=== PATIENT | male | born 1980 | race American Indian/Alaskan Native ===

== ENCOUNTER 2018-11-09 15:16 | Emergency (ER) | payer SELFPAY ==
--- NOTE | 2018-11-09 15:46 | Emergency Department Report ---
Addendum entered and electronically signed by ARNALDO SANDOVAL NP 11/09/18 16:47: Blank Doc - Documentation Documentation: Patient is eating soap and is expressing visual and auditory hallucinations. Patient is not stable currently with my assessment. Patient appears to be mentally ill with imminently life endangering crisis to self. Patient appears to be so unable to care for his own physical health and safety as to create an imminently life-endangering crisis. Patient placed on 1013. Original Note: Blank Doc - Documentation Documentation: This is a 38-year-old male that presents with visual hallucinations. Denies any SI/HI. Stated is out of his medications for x1 year. This initial assessment diagnostic orders/clinical plan/treatment(s) is/are subject to change based on patient's health status, clinical progression and re- assessment by fellow clinical providers in the ED. Further treatment and workup at subsequent clinical providers discretion. Patient/guardians urged not to elope from ED s their condition may be serious if not clinically assessed and managed. Initial orders include: 1-labs 2- Charge nurse called for patient to be brought back chucky. 3- RN was notified patient to be in full observation until patient goes back to the ED.
[2018-11-09 16:43] LABS: Basophils # (Auto) 0.1 K/mm3 (0.0-0.1); Basophils % (Auto) 0.9 % (0.0-1.8); Eosinophils # (Auto) 0.1 K/mm3 (0.0-0.4); Eosinophils % (Auto) 2.2 % (0.0-4.3); Lymphocytes % (Auto) 29.4 % (13.4-35.0); Mean Corpuscular HGB Conc 36 % (32-34); Mean Corpuscular Volume 89 fl (84-94); Monocytes # (Auto) 0.4 K/mm3 (0.0-0.8); Monocytes % (Auto) 6.5 % (0.0-7.3); Platelet Count 238 K/mm3 (140-440); Red Blood Count 5.01 M/mm3 (3.65-5.03); Red Cell Distribution Width 13.5 % (13.2-15.2)
[2018-11-09 16:44] LABS: Hematocrit 44.3 % (35.5-45.6); Hemoglobin 15.8 gm/dl (11.8-15.2)
[2018-11-09 17:12] LABS: Alanine Aminotransferase 81 units/L (7-56); Albumin 4.7 g/dL (3.9-5); BUN/Creatinine Ratio 6; Blood Urea Nitrogen 7 mg/dL (9-20); Calcium 9.6 mg/dL (8.4-10.2); Hemolysis Index 8
--- NOTE | 2018-11-09 18:00 | Emergency Department Report ---
ED Psych HPI - General Chief Complaint: Psych Stated Complaint: MH/HALLUNCINATION Time Seen by Provider: 11/09/18 15:44 Source: patient Mode of arrival: Ambulatory Limitations: No Limitations - History of Present Illness Initial Comments: 38 year old male with a past medical history bipolar, schizophrenia, hypertension, and diabetes as per triage presents to the hospital exhibiting psychosis. Patient had visual hallucinations appear to 42 without a mass has 1 year. Initial mid-level evaluated noted patient eating soap and talking to himself. When questioned patient denies psychiatric history and states he has just here for a flu shot. He is cooperative at this time. No physical complaints reported. - Related Data Allergies Allergy/AdvReac Type Severity Reaction Status Date / Time Penicillins Allergy Unknown Verified 11/09/18 15:45 ED Review of Systems ROS: Stated complaint: MH/HALLUNCINATION Other details as noted in HPI Comment: All other systems reviewed and negative ED Past Medical Hx - Past Medical History Hx Hypertension: Yes (bipolar hallucinations, schizophrenia) Hx Diabetes: Yes - Surgical History Past Surgical History?: No - Social History Smoking Status: Never Smoker Substance Use Type: None ED Physical Exam - General Limitations: No Limitations - Other Other exam information: General: No limitations, patient is alert in no acute distress Head exam: Atraumatic, normocephalic Eyes exam: Normal appearance, pupils equal reactive to light, extraocular movements intact ENT: Moist mucous membrane, normal oropharynx Neck exam: Normal inspection, full range of motion, no meningismus nontender Respiratory exam: Clear to auscultation bilateral, no wheezes, rales, crackles Cardiovascular: Normal rate and rhythm, normal heart sounds Abdomen: Soft, nondistended, and nontender, with normal bowel sounds, no rebound, or guarding Extremity: Full range of motion normal inspection no deformity Back: Normal Inspection, full range of motion, no tenderness Neurologic: Alert, cranial nerves intact, no motor or sensory deficit Psychiatric: Alert, cooperative Skin: Warm, dry, intact ED Course Vital Signs 11/09/18 15:45 Temperature 98.3 F Pulse Rate 100 H Respiratory 18 Rate Blood Pressure 128/77 O2 Sat by Pulse 98 Oximetry ED Medical Decision Making - Lab Data Result diagrams: 11/09/18 16:14 11/09/18 16:14 Lab Results 11/09/18 11/09/18 11/09/18 Range/Units 16:14 16:14 16:14 WBC 6.7 (4.5-11.0) K/mm3 RBC 5.01 (3.65-5.03) M/mm3 Hgb 15.8 H (11.8-15.2) gm/dl Hct 44.3 (35.5-45.6) % MCV 89 (84-94) fl MCH 32 (28-32) pg MCHC 36 H (32-34) % RDW 13.5 (13.2-15.2) % Plt Count 238 (140-440) K/mm3 Lymph % (Auto) 29.4 (13.4-35.0) % [place] % (Auto) 6.5 (0.0-7.3) % Eos % (Auto) 2.2 (0.0-4.3) % Baso % (Auto) 0.9 (0.0-1.8) % Lymph # 2.0 (1.2-5.4) K/mm3 [place] # 0.4 (0.0-0.8) K/mm3 Eos # 0.1 (0.0-0.4) K/mm3 Baso # 0.1 (0.0-0.1) K/mm3 Seg Neutrophils % 61.0 (40.0-70.0) % Seg Neutrophils # 4.1 (1.8-7.7) K/mm3 Sodium 142 (137-145) mmol/L Potassium 3.5 L (3.6-5.0) mmol/L Chloride 101.2 (98-107) mmol/L Carbon Dioxide 25 (22-30) mmol/L Anion Gap 19 mmol/L BUN 7 L (9-20) mg/dL Creatinine 1.2 (0.8-1.5) mg/dL Estimated GFR > 60 ml/min BUN/Creatinine Ratio 6 % Glucose 94 (75-100) mg/dL Calcium 9.6 (8.4-10.2) mg/dL Total Bilirubin 1.10 (0.1-1.2) mg/dL AST 210 H (5-40) units/L ALT 81 H (7-56) units/L Alkaline Phosphatase 67 (35-129) units/L Total Protein 7.3 (6.3-8.2) g/dL Albumin 4.7 (3.9-5) g/dL Albumin/Globulin Ratio 1.8 % TSH 0.620 (0.270-4.200) mlU/mL Urine Color (Yellow) Urine Turbidity (Clear) Urine pH (5.0-7.0) Ur Specific [place] (1.003-1.030) Urine Protein (Negative) mg/dL Urine Glucose (UA) (Negative) mg/dL Urine Ketones (Negative) mg/dL Urine Blood (Negative) Urine Nitrite (Negative) Urine Bilirubin (Negative) Urine Urobilinogen (<2.0) mg/dL Ur Leukocyte Esterase (Negative) Urine WBC (Auto) (0.0-6.0) /HPF Urine RBC (Auto) (0.0-6.0) /HPF Uric Acid Crystals Hyaline Casts /LPF Urine Mucus /HPF Salicylates (2.8-20.0) mg/dL Urine Opiates Screen Urine Methadone Screen Acetaminophen (10.0-30.0) ug/mL Ur Barbiturates Screen Ur Phencyclidine Scrn Ur Amphetamines Screen U Benzodiazepines Scrn Urine Cocaine Screen U Marijuana (THC) Screen Drugs of Abuse Note Plasma/Serum Alcohol (0-0.07) % 11/09/18 11/09/18 11/09/18 Range/Units 16:14 16:14 16:14 WBC (4.5-11.0) K/mm3 RBC (3.65-5.03) M/mm3 Hgb (11.8-15.2) gm/dl Hct (35.5-45.6) % MCV (84-94) fl MCH (28-32) pg MCHC (32-34) % RDW (13.2-15.2) % Plt Count (140-440) K/mm3 Lymph % (Auto) (13.4-35.0) % [place] % (Auto) (0.0-7.3) % Eos % (Auto) (0.0-4.3) % Baso % (Auto) (0.0-1.8) % Lymph # (1.2-5.4) K/mm3 [place] # (0.0-0.8) K/mm3 Eos # (0.0-0.4) K/mm3 Baso # (0.0-0.1) K/mm3 Seg Neutrophils % (40.0-70.0) % Seg Neutrophils # (1.8-7.7) K/mm3 Sodium (137-145) mmol/L Potassium (3.6-5.0) mmol/L Chloride (98-107) mmol/L Carbon Dioxide (22-30) mmol/L Anion Gap mmol/L BUN (9-20) mg/dL Creatinine (0.8-1.5) mg/dL Estimated GFR ml/min BUN/Creatinine Ratio % Glucose (75-100) mg/dL Calcium (8.4-10.2) mg/dL Total Bilirubin (0.1-1.2) mg/dL AST (5-40) units/L ALT (7-56) units/L Alkaline Phosphatase (35-129) units/L Total Protein (6.3-8.2) g/dL Albumin (3.9-5) g/dL Albumin/Globulin Ratio % TSH (0.270-4.200) mlU/mL Urine Color (Yellow) Urine Turbidity (Clear) Urine pH (5.0-7.0) Ur Specific [place] (1.003-1.030) Urine Protein (Negative) mg/dL Urine Glucose (UA) (Negative) mg/dL Urine Ketones (Negative) mg/dL Urine Blood (Negative) Urine Nitrite (Negative) Urine Bilirubin (Negative) Urine Urobilinogen (<2.0) mg/dL Ur Leukocyte Esterase (Negative) Urine WBC (Auto) (0.0-6.0) /HPF Urine RBC (Auto) (0.0-6.0) /HPF Uric Acid Crystals Hyaline Casts /LPF Urine Mucus /HPF Salicylates < 0.3 L (2.8-20.0) mg/dL Urine Opiates Screen Urine Methadone Screen Acetaminophen < 5.0 L (10.0-30.0) ug/mL Ur Barbiturates Screen Ur Phencyclidine Scrn Ur Amphetamines Screen U Benzodiazepines Scrn Urine Cocaine Screen U Marijuana (THC) Screen Drugs of Abuse Note Plasma/Serum Alcohol < 0.01 (0-0.07) % 11/09/18 11/09/18 Range/Units 17:20 17:20 WBC (4.5-11.0) K/mm3 RBC (3.65-5.03) M/mm3 Hgb (11.8-15.2) gm/dl Hct (35.5-45.6) % MCV (84-94) fl MCH (28-32) pg MCHC (32-34) % RDW (13.2-15.2) % Plt Count (140-440) K/mm3 Lymph % (Auto) (13.4-35.0) % [place] % (Auto) (0.0-7.3) % Eos % (Auto) (0.0-4.3) % Baso % (Auto) (0.0-1.8) % Lymph # (1.2-5.4) K/mm3 [place] # (0.0-0.8) K/mm3 Eos # (0.0-0.4) K/mm3 Baso # (0.0-0.1) K/mm3 Seg Neutrophils % (40.0-70.0) % Seg Neutrophils # (1.8-7.7) K/mm3 Sodium (137-145) mmol/L Potassium (3.6-5.0) mmol/L Chloride (98-107) mmol/L Carbon Dioxide (22-30) mmol/L Anion Gap mmol/L BUN (9-20) mg/dL Creatinine (0.8-1.5) mg/dL Estimated GFR ml/min BUN/Creatinine Ratio % Glucose (75-100) mg/dL Calcium (8.4-10.2) mg/dL Total Bilirubin (0.1-1.2) mg/dL AST (5-40) units/L ALT (7-56) units/L Alkaline Phosphatase (35-129) units/L Total Protein (6.3-8.2) g/dL Albumin (3.9-5) g/dL Albumin/Globulin Ratio % TSH (0.270-4.200) mlU/mL Urine Color Yellow (Yellow) Urine Turbidity Clear (Clear) Urine pH 5.0 (5.0-7.0) Ur Specific [place] 1.009 (1.003-1.030) Urine Protein <15 mg/dl (Negative) mg/dL Urine Glucose (UA) Neg (Negative) mg/dL Urine Ketones Neg (Negative) mg/dL Urine Blood Neg (Negative) Urine Nitrite Neg (Negative) Urine Bilirubin Neg (Negative) Urine Urobilinogen 2.0 (<2.0) mg/dL Ur Leukocyte Esterase Neg (Negative) Urine WBC (Auto) 1.0 (0.0-6.0) /HPF Urine RBC (Auto) 1.0 (0.0-6.0) /HPF Uric Acid Crystals Few Hyaline Casts 7 /LPF Urine Mucus Few /HPF Salicylates (2.8-20.0) mg/dL Urine Opiates Screen Presumptive negative Urine Methadone Screen Presumptive negative Acetaminophen (10.0-30.0) ug/mL Ur Barbiturates Screen Presumptive negative Ur Phencyclidine Scrn Presumptive negative Ur Amphetamines Screen Presumptive negative U Benzodiazepines Scrn Presumptive negative Urine Cocaine Screen Presumptive negative U Marijuana (THC) Screen Presumptive negative Drugs of Abuse Note Disclamer Plasma/Serum Alcohol (0-0.07) % - Medical Decision Making Patient is medically clear for psychiatric admission and transfer. Mild elevation in LFTs noted AST greater than ALT suspicious for alcohol abuse. Mental health evaluation and formed for evaluation. - Differential Diagnosis psychosis, mental noncompliance, schizophrenia Critical Care Time: No Critical care attestation.: If time is entered above; I have spent that time in minutes in the direct care of this critically ill patient, excluding procedure time. ED Disposition Clinical Impression: Psychosis, Noncompliance with medication regimen Disposition: [id number]/TX-65 PSY HOSP/PSY UNIT Is pt being admited?: No Condition: Stable Time of Disposition: 20:29 (awaiting evaluation)
[2018-11-09 19:52] LABS: Amphetamine Screen,Urine PRESUMPTIVE NEGATIVE; Benzodiazepines Screen,Urine PRESUMPTIVE NEGATIVE; Cannabinoid Screen,Urine PRESUMPTIVE NEGATIVE; Cocaine Screen,Urine PRESUMPTIVE NEGATIVE; Methadone Screen,Urine PRESUMPTIVE NEGATIVE; Opiate Screen,Urine PRESUMPTIVE NEGATIVE
[2018-11-09 20:00] LABS: Bilirubin,Urine NEG (Negative); Blood,Urine NEG (Negative); Color,Urine Yellow (Yellow); Hyaline Casts,Urine 7 /LPF; Mucus,Urine FEW /HPF; Protein,Urine <15 mg/dL mg/dL (Negative)
--- NOTE | 2018-11-10 14:54 | Consultation ---
History of Present Illness - Reason for Consult Consult date: 11/10/18 Reason for consult: Mental Health Evaluation Requesting physician: CESAR PEREZ - Chief Complaint Chief complaint: "I need a flu shot" - History of Present Psychiatric Illness 38 y.o. AA male who presented to the ER with acute psychosis. Today the patient anxious and disorganized during the assessment. He stated the came to the ER for a flu shot. The patient rambles about irrelevant topics throughout the interview. He had to be redirected several times to keep him on topic. Per the staff, the patient had to be put in the seclusion room because of his inappropriate behavior. This patient is a poor historian at this time. No gestures of SI/HI's. Medications and Allergies Allergies Allergy/AdvReac Type Severity Reaction Status Date / Time Penicillins Allergy Unknown Verified 11/09/18 15:45 Home Medications Medication Instructions Recorded Confirmed Last Taken Type Unobtainable 11/09/18 11/09/18 Unknown History Active Meds: Active Medications Olanzapine (Zyprexa) 5 mg PO HS CRISTIN Past psychiatric history - Past Medical History Past Medical History: other (Unable to obtain) Past Surgical History: Other (Unable to obtain ) - past Psychiatric treatment and history psychiatric treatment history: Unable to obtain a psy hx and a fam pxy hx. - Social History Social history: other (Unable to obtain) Mental Status Exam - Vital signs Last Vital Signs Temp 97.8 F 11/10/18 08:00 Pulse 81 11/10/18 08:00 Resp 18 11/10/18 08:00 BP 110/78 11/10/18 08:00 Pulse Ox 98 11/10/18 08:00 - Exam Narrative exam: MSE: Appearance: in hospital attire Behavior: regular eye contact Speech: pressured speech Mood: "anxious" Affect: congruent to mood Thought Process: disorganized Thought Content: no gestures of SI/HI's, delusional Motor Activity: ambulatory Cognition: A/O x3 Insight: poor Judgment: poor Results Result Diagrams: 11/09/18 16:14 11/09/18 16:14 Abnormal lab results 11/09/18 11/09/18 11/09/18 Range/Units 16:14 16:14 16:14 Hgb 15.8 H (11.8-15.2) gm/dl MCHC 36 H (32-34) % Potassium 3.5 L (3.6-5.0) mmol/L BUN 7 L (9-20) mg/dL AST 210 H (5-40) units/L ALT 81 H (7-56) units/L Salicylates < 0.3 L (2.8-20.0) mg/dL Acetaminophen (10.0-30.0) ug/mL 11/09/18 Range/Units 16:14 Hgb (11.8-15.2) gm/dl MCHC (32-34) % Potassium (3.6-5.0) mmol/L BUN (9-20) mg/dL AST (5-40) units/L ALT (7-56) units/L Salicylates (2.8-20.0) mg/dL Acetaminophen < 5.0 L (10.0-30.0) ug/mL All other labs normal. Assessment and Plan Assessment and plan: Impression: Unspecified Psychosis. Unspecified Anxiety DO. Today the patient is anxious and disorganized during the assessment. DDx: Schizophrenia, Bipolar DO with psychosis Recommendation/Plan: Continue 1013 and start Zyorexa 5mg PO HS for psychosis and Buspar 7.5 mg PO BID for anxiety. Attempted to discuss possible metabolic side effects of Zyprexa with the patient. Dispo: The patient was referred to inpatient psy services. Staffed with Dr Suarez.
[2018-11-10] MEDS ORDERED: BUSPAR PO SCH (15:00)
[2018-11-10 15:09] VITALS: BP 126/77
== END 2018-11-10 16:16 ==
LOC: ED 15:16
DX: F29 Unspecified psychosis not due to a substance or known physiological condition (principal); F32.9 Major depressive disorder, single episode, unspecified; F20.9 Schizophrenia, unspecified; E11.9 Type 2 diabetes mellitus without complications; F41.9 Anxiety disorder, unspecified; Z91.14 Patient's other noncompliance with medication regimen; Z88.0 Allergy status to penicillin
CPT/HCPCS: 36415; 80053; 80307; 81001; 84443; 85025; 99285; G0480; 80320